=== PATIENT | female | born 1970 | race Caucasian/White ===

== ENCOUNTER → 2016-12-28 | Outpatient (CLI) | payer OTHER ==
[2016-12-28 07:28] LABS: microscopic required? NO
[2016-12-28 07:36] LABS: BASOPHIL % 0.5 % (0-2); PLATELET COUNT 277 x10^3mcL (130-400); RED CELL DISTRIBUTION WIDTH 13.6 % (11.5-14.5)
[2016-12-28 07:43] LABS: UA SPECIFIC GRAVITY 1.015 (1.005-1.035); urine erythrocyte NEGATIVE (NEGATIVE)
[2016-12-28 08:05] LABS: ALBUMIN 3.6 g/dL (3.4-5.0); ALKALINE PHOSPHATASE 140 U/L (46-116); ALT/SGPT 104 U/L (14-59); AST/SGOT 47 U/L (15-37); BILIRUBIN TOTAL 0.54 mg/dL (0.20-1.00); CALCIUM 8.7 mg/dL (8.5-10.1); CARBON DIOXIDE 26.8 mmol/L (21-32); CHLORIDE SERUM 107 mmol/L (98-107); CHOLESTEROL 164 mg/dL (<200); CREATININE SERUM 0.8 mg/dL (0.6-1.0); FREE T4 1.15 ng/dL (0.76-1.46); GFR1 > 60 mL/min; GLUCOSE SERUM 108 mg/dL (74-106); POTASSIUM SERUM 3.5 mmol/L (3.5-5.1); SODIUM SERUM 143 mmol/L (136-145); TOTAL PROTEIN, SERUM 7.1 g/dL (6.4-8.2); TRIGLYCERIDES 40 mg/dL (<150); URIC ACID 4.1 mg/dL (2.6-6.0)
[2016-12-28 08:11] LABS: CHOLESTEROL/HDL RATIO 2.6; HDL CHOLESTEROL 63 mg/dL (40-60)
[2016-12-29 04:16] LABS: VITAMIN D 25-HYDROXY 20.9 ng/mL (30.0-100.0)
== END | disposition home or self-care (01) ==
LOC: LB 07:00
DX: Z00.00 Encounter for general adult medical examination without abnormal findings (principal)
CPT/HCPCS: 84439; 86431

== ENCOUNTER → 2017-01-22 | Outpatient (CLI) | payer OTHER ==
[2017-01-22 08:20] LABS: CARBON DIOXIDE 28.6 mmol/L (21-32); CHLORIDE SERUM 105 mmol/L (98-107); CREATININE SERUM 0.6 mg/dL (0.6-1.0); GFR1 > 60 mL/min; GLUCOSE SERUM 95 mg/dL (74-106); POTASSIUM SERUM 3.4 mmol/L (3.5-5.1); SODIUM SERUM 141 mmol/L (136-145); TOTAL PROTEIN, SERUM 7.2 g/dL (6.4-8.2)
[2017-01-22 08:21] LABS: ALBUMIN 3.7 g/dL (3.4-5.0); ALKALINE PHOSPHATASE 118 U/L (46-116); ALT/SGPT 50 U/L (14-59); AST/SGOT 21 U/L (15-37); BILIRUBIN TOTAL 0.4 mg/dL (0.20-1.00); CALCIUM 9.2 mg/dL (8.5-10.1)
== END | disposition home or self-care (01) ==
LOC: US 07:30
PROC: BW40ZZZ Ultrasonography of Abdomen (ICD-10-PCS; principal; 2017-01-22)
DX: R94.5 Abnormal results of liver function studies (principal)

== ENCOUNTER → 2017-08-02 | Outpatient (CLI) | payer OTHER ==
[2017-08-02 07:19] LABS: microscopic required? NO
[2017-08-02 07:49] LABS: urine erythrocyte NEGATIVE (NEGATIVE)
[2017-08-02 08:04] LABS: ALBUMIN 4.1 g/dL (3.4-5.0); ALKALINE PHOSPHATASE 146 U/L (46-116); ALT/SGPT 109 U/L (14-59); AST/SGOT 42 U/L (15-37); BILIRUBIN TOTAL 0.6 mg/dL (0.20-1.00); CALCIUM 9.5 mg/dL (8.5-10.1); CARBON DIOXIDE 30.9 mmol/L (21-32); CHLORIDE SERUM 102 mmol/L (98-107); CREATININE SERUM 0.7 mg/dL (0.6-1.0); FREE T4 1.04 ng/dL (0.76-1.46); GFR1 > 60 mL/min; GLUCOSE SERUM 102 mg/dL (74-106); POTASSIUM SERUM 3.8 mmol/L (3.5-5.1); SODIUM SERUM 142 mmol/L (136-145); TOTAL PROTEIN, SERUM 8.1 g/dL (6.4-8.2)
[2017-08-02 08:29] LABS: BASOPHIL % 0.6 % (0-2); PLATELET COUNT 306 x10^3mcL (130-400)
== END | disposition home or self-care (01) ==
LOC: LB 08:12
DX: Z00.00 Encounter for general adult medical examination without abnormal findings (principal); K30 Functional dyspepsia
CPT/HCPCS: 84439

== ENCOUNTER 2017-12-11 13:04 | Emergency (ER) | payer OTHER ==
[~2017-12-11] VITALS: Ht 157.5 cm; Wt 66.2 kg
[2017-12-11 13:05] VITALS: Ht 157.5 cm; Wt 66.2 kg
[2017-12-11 14:36] VITALS: BP 137/84
== END 2017-12-11 14:36 | disposition home or self-care (01) ==
LOC: ED 13:04
DX: R42 Dizziness and giddiness (principal); R11.0 Nausea; Z88.2 Allergy status to sulfonamides; Z90.710 Acquired absence of both cervix and uterus
CPT/HCPCS: J8597; Q0162

== ENCOUNTER → 2018-03-05 | Outpatient (CLI) | payer OTHER ==
[2018-03-05 07:25] LABS: microscopic required? NO
[2018-03-05 07:40] LABS: BASOPHIL % 0.9 % (0-2); PLATELET COUNT 327 x10^3mcL (130-400); RED CELL DISTRIBUTION WIDTH 12.8 % (11.5-14.5)
[2018-03-05 08:05] LABS: ALBUMIN 3.5 g/dL (3.4-5.0); ALKALINE PHOSPHATASE 111 U/L (46-116); ALT/SGPT 46 U/L (14-59); AST/SGOT 27 U/L (15-37); BILIRUBIN TOTAL 0.44 mg/dL (0.20-1.00); CALCIUM 8.5 mg/dL (8.5-10.1); CARBON DIOXIDE 25.7 mmol/L (21-32); CHLORIDE SERUM 108 mmol/L (98-107); CHOLESTEROL 155 mg/dL (<200); CHOLESTEROL/HDL RATIO 2.8; CREATININE SERUM 0.6 mg/dL (0.6-1.0); GFR1 > 60 mL/min; GLUCOSE SERUM 93 mg/dL (74-106); HDL CHOLESTEROL 56 mg/dL (40-60); POTASSIUM SERUM 3.4 mmol/L (3.5-5.1); SODIUM SERUM 145 mmol/L (136-145); TRIGLYCERIDES 47 mg/dL (<150)
[2018-03-05 08:06] LABS: UA SPECIFIC GRAVITY <=1.005 (1.005-1.035); urine erythrocyte NEGATIVE (NEGATIVE)
[2018-03-05 08:30] LABS: T3 TOTAL 1.14 ng/mL
[2018-03-05 08:31] LABS: FREE T4 1.04 ng/dL (0.76-1.46); FREE THYROXINE INDEX 2.8 ug/dL (1.4-4.5); T4(THYROXINE) 8.7 ug/dL (4.7-13.3)
== END | disposition home or self-care (01) ==
LOC: LB 08:00 → MA 03-07 10:00
DX: Z00.00 Encounter for general adult medical examination without abnormal findings (principal)
CPT/HCPCS: 77067; 84439

== ENCOUNTER → 2018-09-26 | Outpatient (CLI) | payer OTHER ==
[2018-09-26 07:30] LABS: BASOPHIL % 0.4 % (0-2); PLATELET COUNT 321 x10^3mcL (130-400); RED CELL DISTRIBUTION WIDTH 13.2 % (11.5-14.5)
[2018-09-26 07:36] LABS: ALBUMIN 3.7 g/dL (3.4-5.0); ALKALINE PHOSPHATASE 147 U/L (46-116); ALT/SGPT 53 U/L (14-59); AST/SGOT 29 U/L (15-37); BILIRUBIN TOTAL 0.49 mg/dL (0.20-1.00); CALCIUM 9.3 mg/dL (8.5-10.1); CARBON DIOXIDE 29.3 mmol/L (21-32); CHLORIDE SERUM 106 mmol/L (98-107); CHOLESTEROL 190 mg/dL (<200); CREATININE SERUM 0.6 mg/dL (0.6-1.0); FREE T4 1.06 ng/dL (0.76-1.46); GFR1 > 60 mL/min; GLUCOSE SERUM 102 mg/dL (74-106); POTASSIUM SERUM 3.8 mmol/L (3.5-5.1); SODIUM SERUM 141 mmol/L (136-145); TOTAL PROTEIN, SERUM 7.4 g/dL (6.4-8.2); TRIGLYCERIDES 54 mg/dL (<150)
[2018-09-26 07:40] LABS: CHOLESTEROL/HDL RATIO 3.1; HDL CHOLESTEROL 61 mg/dL (40-60)
== END | disposition home or self-care (01) ==
LOC: LB 07:33
PROVIDERS: Preventive Medicine Preventive Medicine/Occupational Environmental Medicine
DX: Z00.00 Encounter for general adult medical examination without abnormal findings (principal); R42 Dizziness and giddiness; R53.83 Other fatigue; E66.3 Overweight
CPT/HCPCS: 84439

== ENCOUNTER 2018-10-21 07:47 | Emergency (ER) | payer OTHER ==
[~2018-10-21] VITALS: Ht 157.5 cm; Wt 64.0 kg
[2018-10-21 07:48] VITALS: Ht 157.5 cm; Wt 64.0 kg
[2018-10-21 09:43] VITALS: BP 140/98
== END 2018-10-21 09:44 | disposition home or self-care (01) ==
LOC: ED 07:47
DX: H81.10 Benign paroxysmal vertigo, unspecified ear (principal)
CPT/HCPCS: 82962

== ENCOUNTER 2019-01-14 09:05 | Emergency (ER) | payer OTHER ==
[~2019-01-14] VITALS: Ht 157.5 cm; Wt 66.2 kg
[2019-01-14 09:12] VITALS: BP 134/80; Ht 157.5 cm; Wt 66.2 kg
== END 2019-01-14 10:36 | disposition home or self-care (01) ==
LOC: ED 09:05
DX: H10.211 Acute toxic conjunctivitis, right eye (principal)

== ENCOUNTER → 2019-02-06 | Outpatient (CLI) | payer OTHER ==
[2019-02-06 11:15] LABS: CALCIUM 8.5 mg/dL (8.5-10.1)
== END | disposition home or self-care (01) ==
LOC: LB 10:14
DX: E78.5 Hyperlipidemia, unspecified (principal); R42 Dizziness and giddiness; E55.9 Vitamin D deficiency, unspecified

== ENCOUNTER → 2019-04-15 | Outpatient (CLI) | payer OTHER | END | disposition home or self-care (01) | LOC: MA 08:15 | PROC: BH02ZZZ Plain Radiography of Bilateral Breasts (ICD-10-PCS; principal; 2019-04-15) | DX: Z12.31 Encounter for screening mammogram for malignant neoplasm of breast (principal) | CPT/HCPCS: 77067 ==

== ENCOUNTER 2019-06-18 11:20 | Emergency (ER) | payer OTHER ==
[~2019-06-18] VITALS: Ht 160 cm; Wt 74.8 kg
[2019-06-18 11:23] VITALS: BP 142/87; Ht 160 cm; Wt 74.8 kg
== END 2019-06-18 12:57 | disposition home or self-care (01) ==
LOC: ED 11:20
DX: H10.211 Acute toxic conjunctivitis, right eye (principal)

== ENCOUNTER → 2019-06-18 | Outpatient (CLI) | payer OTHER | END | disposition home or self-care (01) | LOC: US 08:00 | PROC: BW40ZZZ Ultrasonography of Abdomen (ICD-10-PCS; principal; 2019-06-18) | DX: R10.13 Epigastric pain (principal); R10.11 Right upper quadrant pain ==

== ENCOUNTER → 2019-12-26 | Outpatient (CLI) | payer OTHER ==
[2019-12-27 07:31] LABS: BASOPHIL % 0.1 % (0-2); PLATELET COUNT 296 x10^3mcL (130-400); RED CELL DISTRIBUTION WIDTH 13.4 % (11.5-14.5)
[2019-12-27 07:45] LABS: ALBUMIN 3.7 g/dL (3.4-5.0); ALKALINE PHOSPHATASE 119 U/L (46-116); ALT/SGPT 61 U/L (14-59); AST/SGOT 27 U/L (15-37); BILIRUBIN TOTAL 0.6 mg/dL (0.20-1.00); CALCIUM 8.5 mg/dL (8.5-10.1); CARBON DIOXIDE 28.6 mmol/L (21-32); CHLORIDE SERUM 103 mmol/L (98-107); CHOLESTEROL 174 mg/dL (<200); CHOLESTEROL/HDL RATIO 3.2; CREATININE SERUM 0.6 mg/dL (0.6-1.0); GFR1 > 60 mL/min; GLUCOSE SERUM 94 mg/dL (74-106); HDL CHOLESTEROL 54 mg/dL (40-60); POTASSIUM SERUM 3.5 mmol/L (3.5-5.1); SODIUM SERUM 139 mmol/L (136-145); TOTAL PROTEIN, SERUM 7.2 g/dL (6.4-8.2); TRIGLYCERIDES 69 mg/dL (<150)
[2019-12-27 07:51] LABS: FREE T4 1.06 ng/dL (0.76-1.46); FREE THYROXINE INDEX 3.3 ug/dL (1.4-4.5); T4(THYROXINE) 9.2 ug/dL (4.7-13.3)
[2019-12-27 08:52] LABS: UA SPECIFIC GRAVITY 1.015 (1.005-1.035); microscopic required? YES; urine erythrocyte NEGATIVE (NEGATIVE)
[2019-12-27 09:21] LABS: T3 TOTAL 1.28 ng/mL
== END | disposition home or self-care (01) ==
LOC: RD 08:16
DX: M25.511 Pain in right shoulder (principal); M25.512 Pain in left shoulder; M79.646 Pain in unspecified finger(s)
CPT/HCPCS: 82306; 84439

== ENCOUNTER → 2020-01-20 | Outpatient (CLI) | payer OTHER | END | disposition home or self-care (01) | LOC: US 07:26 | PROC: BW40ZZZ Ultrasonography of Abdomen (ICD-10-PCS; principal; 2020-01-20) | DX: R10.11 Right upper quadrant pain (principal); K76.0 Fatty (change of) liver, not elsewhere classified ==

== ENCOUNTER 2020-02-02 06:56 | Day surgery (SDC) | payer OTHER, SELFPAY ==
[~2020-02-02] VITALS: Ht 154.9 cm; Wt 65.3 kg
[2020-02-02 07:37] VITALS: BP 119/71
[2020-02-02 14:52] VITALS: BP 135/79
== END 2020-02-02 11:45 | disposition home or self-care (01) ==
LOC: GI 06:56 → OR 09:00 → GI 09:00
PROVIDERS: ATTEND Internal Medicine Gastroenterology
DX: Z12.11 Encounter for screening for malignant neoplasm of colon (principal); Z11.59 Encounter for screening for other viral diseases
CPT/HCPCS: 45378; J1200; J1610; J2250; J2310; J3010; J3490; U0003-CS

== ENCOUNTER → 2020-04-07 | Outpatient (CLI) | payer OTHER ==
[2020-04-01 13:22] LABS: CREATININE SERUM 0.7 mg/dL (0.6-1.0)
== END | disposition home or self-care (01) ==
LOC: CT 08:17
PROVIDERS: ATTEND Internal Medicine Gastroenterology
PROC: BW201ZZ Computerized Tomography (CT Scan) of Abdomen using Low Osmolar Contrast (ICD-10-PCS; principal; 2020-04-07)
DX: R10.11 Right upper quadrant pain (principal); F41.9 Anxiety disorder, unspecified
CPT/HCPCS: Q9967

== ENCOUNTER → 2020-04-21 | Outpatient (CLI) | payer OTHER | END | disposition home or self-care (01) | LOC: MA 08:23 | PROVIDERS: ATTEND Preventive Medicine Preventive Medicine/Occupational Environmental Medicine | PROC: BH02ZZZ Plain Radiography of Bilateral Breasts (ICD-10-PCS; principal; 2020-04-21) | DX: Z12.31 Encounter for screening mammogram for malignant neoplasm of breast (principal) | CPT/HCPCS: 77067 ==